=== PATIENT | male | born 1955 | race Caucasian/White ===

== ENCOUNTER 2023-08-22 14:16 | Emergency (ER) | payer MEDICARE, OTHER, SELFPAY ==
[2023-08-22 14:20] VITALS: BP 153/74; PULSE 100; RESP 18; TEMP 36.3; O2SAT 98; BMI 24.3
[2023-08-22 14:47] LABS: Add Manual Diff / Slide Review NO; Basophils Absolute Auto 100 /uL (0-100); Basophils Percent Auto 0.6 % (0-2); Eosinophils Absolute Auto 100 /uL (0-450); Eosinophils Percent Auto 1.2 % (2-4); Hemoglobin 14.1 g/dL (13.5-17.5); Lymphocytes Absolute Auto 1900 /uL (1100-4500); Lymphocytes Percent Auto 17.5 % (25-40); Mean Corpuscular HGB Conc 33.6 % (30-36); Mean Corpuscular Hemoglobin 30.6 PG (26-34); Monocytes Absolute Auto 900 /uL (0-900); Neutrophils Absolute Auto 8000 /uL (1500-7000); Neutrophils Percent Auto 72.7 % (50-75); Platelet Count 389 X10^3/uL (150-400); Red Blood Cell Count 4.62 X10^6/uL (4.5-5.9); Red Cell Distribution Width 16.6 % (11.6-14.8)
[2023-08-22 14:53] LABS: INR 0.9 (0.9-1.3); Prothrombin Time 10.7 SECONDS (9.4-12.5)
[2023-08-22 14:55] LABS: PTT Partial Thromboplastin Tim 36 SECONDS (25.1-36.5)
[2023-08-22 15:01] LABS: Alanine Aminotransferase 24 IU/L (<50); Albumin 4.7 g/dL (3.5-5.0); Albumin Globulin Ratio 1.6 (1.0-2.8); Alkaline Phosphatase 69 U/L (38-126); Aspartate Aminotransferase 28 IU/L (17-59); BUN Creatinine Ratio 22.2 (6-22); Bilirubin Total 0.5 mg/dL (0.2-1.3); Blood Urea Nitrogen 22 mg/dL (9-20); Calcium 9.5 mg/dL (8.4-10.2); Carbon Dioxide 24 mmol/L (22-32); Chloride 101 mmol/L (98-107); Estimated Glomerular Filt Rate > 60 mL/min (>60); Globulin 2.9 g/dL (1.7-4.1); Glucose 246 mg/dL (80-110); HEMOLYSIS < 15 (0-50); Potassium 4.8 mmol/L (3.4-5.1); Sodium 133 mmol/L (137-145); Total Protein 7.6 g/dL (6.3-8.2)
--- NOTE | 2023-08-22 15:20 | DI.CT.S_ITS ---
PROCEDURE: CT ANGIO CHEST PE PROTOCOL INDICATIONS: r/o PE, states coughing up blood TECHNIQUE: After the administration of intravenous contrast, 2 mm thick sections acquired from the pulmonary apices to the posterior costophrenic angles. 3-dimensional maximum intensity projection (MIP) coronal and sagittal reformats were then acquired through the thorax. For radiation dose reduction, the following was used: automated exposure control, adjustment of mA and/or kV according to patient size. COMPARISON: [facility], CT, CT CHEST WITHOUT CONTRAST, 12/14/2021, 7:50. [facility], CT, CT CHEST WITHOUT CONTRAST, 07/31/2023, 16:13. FINDINGS: Image quality: Diagnostic. Pulmonary arteries: Pulmonary arteries are normal in size, and demonstrate no intraluminal filling defects to suggest central pulmonary embolism. Lower Neck: No enlarged lymph nodes. Thyroid: No thyroid nodules which require sonographic follow up, per consensus guidelines. Axillae: No enlarged lymph nodes. Chest Wall: Unremarkable. Bones: Unremarkable. Lungs and Pleura: No pneumothorax or pleural effusions. Stable pleural based mass, left lingula, unchanged dating back to 12/14/2021, with associated pleural thickening. It measures approximately 2.5 x 1.4 cm. Heart: Heart size is normal. No pericardial effusion. Severe coronary artery calcifications. Thoracic Vessels: No aortic aneurysm. Mediastinum and Jamee: No enlarged lymph nodes. Esophagus: No wall thickening. Moderate hiatal hernia. Upper Abdomen: Visualized upper abdomen solid organs and bowel loops appear normal. IMPRESSION: 1. No acute pulmonary emboli. 2. Severe coronary artery calcifications. 3. Stable pleural based mass, lingula of left lung, with associated pleural thickening. This is stable dating back to November,. 4. Moderate hiatal hernia. 5. No acute pulmonary process. Dictated by: David Keen M.D. on 08/22/2023 at 15:58 Approved by: David Keen M.D. on 08/22/2023 at 16:05
--- NOTE | 2023-08-22 15:49 | ED.URI ---
HPI - URI/Sore Throat General Chief Complaint: Upper Respiratory Symptoms Stated Complaint: coughing blood Time Seen by Provider: 08/22/23 15:10 Source: patient Mode of arrival: Ambulatory History of Present Illness HPI Narrative: Patient here for 1 episode of hemoptysis today. No prior history of blood clots in legs or lungs. Patient just seen by pulmonary services August 16, 2023, [address]. Salazar, regarding following up a CT of the chest 2.5 cm peripheral lingular nodule associated with left pleural-based scar. Patient has history of pneumothorax rib fracture and VATS years ago. Patient is not on any blood thinners. Patient has stopped smoking 5 days ago. No fever chills. According to Pulmonary office visit 6 days ago no further workup was needed. Last night he did have some right lateral rib discomfort. Pain with movement and coughing. He had 1 episode of hemoptysis. He brought a sample in. Is dark brownish in color. No prior history of blood clots in legs or lungs. Patient is not on any blood thinners. Patient is in no distress. Related Data Home Medications Medication Instructions Recorded Confirmed insulin aspart U-100 100 unit/mL 1 unit SUBCUT TID 08/16/23 08/16/23 (3 mL) subcutaneous pen (Novolog FlexPen U-100 Insulin aspart) insulin glargine 100 unit/mL (3 22 unit SUBCUT DAILY 08/16/23 08/16/23 mL) subcutaneous pen (Lantus Solostar U-100 Insulin) levothyroxine 75 mcg tablet 75 mcg PO DAILY 08/16/23 08/16/23 (Synthroid) lisinopril 10 mg tablet 10 mg PO DAILY 08/16/23 08/16/23 omeprazole magnesium 20 mg 20 mg PO DAILY 08/16/23 08/16/23 capsule,delayed release (Acid Wind Tunnel Engineer (omeprazole)) sertraline 50 mg tablet 50 mg PO DAILY 08/16/23 08/16/23 Allergies Allergy/AdvReac Type Severity Reaction Status Date / Time No Known Drug Allergies Allergy Verified 08/29/23 08:23 Review of Systems Review of Systems Narrative: GENERAL: negative chills, fatigue, malaise, fever, sweats. HEENT: negative sinus pain, ear pain, sore throat RESPIRATORY: negative dyspnea, positive hemoptysis CARDIOVASCULAR: negative chest pain, palpitations GASTROINTESTINAL: negative nausea, vomiting, abdominal pain : negative dysuria, frequency, hematuria MUSCULOSKELETAL: negative muscle or bony pain SKIN: negative rash, skin lesions NEUROLOGIC: negative weakness, numbness ROS Unobtainable: All systems reviewed & are unremarkable except as noted in HPI and below Patient History Social History Smoking Status: Current every day smoker (Cigar) Smoking Status: Current some day smoker Substance Use Type: marijuana Exam Narrative Exam Narrative: GENERAL: in no distress, not toxic not dyspneic HEAD: Normocephalic. EYES: Pupils equal round ENT: Mucous membranes moist. NECK: Trachea midline. CARDIOVASCULAR: Regular rate and rhythm RESPIRATORY: Clear to auscultation. Breath sounds equal bilaterally. No wheezes, rales, or rhonchi. Speaking full sentences. Mild tenderness to the right mid lateral ribs. No crepitus no flail. GASTROINTESTINAL: Abdomen soft, non-tender BACK: No flank tenderness. NEURO: AOx4. Clear speech. SKIN: Warm and dry PSYCH: Not anxious, is cooperative Initial Vital Signs Initial Vital Signs: Vital Signs Temperature 97.3 F L 08/22/23 14:20 Pulse Rate 100 H 08/22/23 14:20 Respiratory Rate 18 08/22/23 14:20 Blood Pressure 153/74 H 08/22/23 14:20 Pulse Oximetry 98 08/22/23 14:20 Oxygen Delivery Method Room Air 08/22/23 14:20 Course Orders Ordered: Discontinued Medications Sodium Chloride (Normal Saline 0.9%) 500 mls @ 1,000 mls/hr IV BOLUS ONE Stop: 08/22/23 14:57 Last Infusion: 08/22/23 16:51 Dose: Infused Documented By: Admin: 08/22/23 16:00 Dose: 1,000 mls/hr Documented By: MPO Vital Signs Vital signs: Vital Signs - 8 hr 08/22/23 14:20 Temperature 97.3 F L Pulse Rate 100 H Respiratory Rate 18 Blood Pressure 153/74 H Pulse Oximetry 98 Oxygen Delivery Method Room Air MDM - URI/Sore Throat Lab Data 08/22/23 14:39 08/22/23 14:39 Labs: Lab Results 08/22/23 08/22/23 Range/Units 14:39 17:15 WBC 11.0 (4.5-11.0) X10^3/uL RBC 4.62 (4.5-5.9) X10^6/uL Hgb 14.1 (13.5-17.5) g/dL Hct 42.0 (41-53) % MCV 91.0 (80-100) fL MCH 30.6 (26-34) PG MCHC 33.6 (30-36) % RDW 16.6 H (11.6-14.8) % Plt Count 389 (150-400) X10^3/uL Neut % (Auto) 72.7 (50-75) % Lymph % (Auto) 17.5 L (25-40) % Scott % (Auto) 8.0 (3-14) % Eos % (Auto) 1.2 L (2-4) % Baso % (Auto) 0.6 (0-2) % Neut # (Auto) 8000 H (0159-6354) /uL Lymph # (Auto) 1900 (3459-9168) /uL Scott # (Auto) 900 (0-900) /uL Eos # (Auto) 100 (0-450) /uL Baso # (Auto) 100 (0-100) /uL PT 10.7 (9.4-12.5) SECONDS INR 0.9 (0.9-1.3) APTT 36 (25.1-36.5) SECONDS Sodium 133 L (137-145) mmol/L Potassium 4.8 (3.4-5.1) mmol/L Chloride 101 (98-107) mmol/L Carbon Dioxide 24 (22-32) mmol/L BUN 22 H (9-20) mg/dL Creatinine 0.99 (0.66-1.25) mg/dL Estimated GFR > 60 (>60) mL/min BUN/Creatinine Ratio 22.2 H (6-22) Glucose 246 H (80-110) mg/dL Calcium 9.5 (8.4-10.2) mg/dL Total Bilirubin 0.5 (0.2-1.3) mg/dL AST 28 (17-59) IU/L ALT 24 (<50) IU/L Alkaline Phosphatase 69 (38-126) U/L Total Protein 7.6 (6.3-8.2) g/dL Albumin 4.7 (3.5-5.0) g/dL Globulin 2.9 (1.7-4.1) g/dL Albumin/Globulin Ratio 1.6 (1.0-2.8) Chlamy pneumoniae PCR Not detected (Not Detect) Adenovirus (PCR) Not detected (Not Detect) B.parapertussis DNA PCR Not detected (Not Detecte) Coronavirus OC43 (PCR) Not detected (Not Detect) Coronavirus HKU1 (PCR) Not detected (Not Detect) Coronavirus 229E (PCR) Not detected (Not Detect) SARS-CoV-2 (PCR) Not detected (Not Detecte) Coronavirus NL63 (PCR) Not detected (Not Detect) Human Metapneumovir PCR Not detected (Not Detect) Influenza Type A (PCR) Not detected (Not Detect) Influenza Type B (PCR) Not detected (Not Detect) M. pneumoniae (PCR) Not detected (Not Detect) Parainfluenza 1 (PCR) Not detected (Not Detect) Parainfluenza 2 (PCR) Not detected (Not Detect) Parainfluenza 3 (PCR) Not detected (Not Detect) Parainfluenza 4 (PCR) Not detected (Not Detect) RSV (PCR) Not detected (Not Detect) Entero/Rhino (PCR) Not detected (Not Detect) Imaging Data CT scan - chest: Radiologist's Impression: [place] [address] CT Scan Report Signed Patient: Reyna Moore MR#: [id number] : 1955 Acct:[id number] Age/Sex: 68 / M Date of Service: 08/22/23 Loc: ED Accession Number: [id number] Procedure: CT angio chest PE protocol Ordering Provider: Anshu Milton MD PROCEDURE: CT ANGIO CHEST PE PROTOCOL INDICATIONS: r/o PE, states coughing up blood TECHNIQUE: After the administration of intravenous contrast, 2 mm thick sections acquired from the pulmonary apices to the posterior costophrenic angles. 3-dimensional maximum intensity projection (MIP) coronal and sagittal reformats were then acquired through the thorax. For radiation dose reduction, the following was used: automated exposure control, adjustment of mA and/or kV according to patient size. COMPARISON: [facility], CT, CT CHEST WITHOUT CONTRAST, 12/14/2021, 7:50. [facility], CT, CT CHEST WITHOUT CONTRAST, 07/31/2023, 16:13. FINDINGS: Image quality: Diagnostic. Pulmonary arteries: Pulmonary arteries are normal in size, and demonstrate no intraluminal filling defects to suggest central pulmonary embolism. Lower Neck: No enlarged lymph nodes. Thyroid: No thyroid nodules which require sonographic follow up, per consensus guidelines. Axillae: No enlarged lymph nodes. Chest Wall: Unremarkable. Bones: Unremarkable. Lungs and Pleura: No pneumothorax or pleural effusions. Stable pleural based mass, left lingula, unchanged dating back to 12/14/2021, with associated pleural thickening. It measures approximately 2.5 x 1.4 cm. Heart: Heart size is normal. No pericardial effusion. Severe coronary artery calcifications. Thoracic Vessels: No aortic aneurysm. Mediastinum and Jamee: No enlarged lymph nodes. Esophagus: No wall thickening. Moderate hiatal hernia. Upper Abdomen: Visualized upper abdomen solid organs and bowel loops appear normal. IMPRESSION: 1. No acute pulmonary emboli. 2. Severe coronary artery calcifications. 3. Stable pleural based mass, lingula of left lung, with associated pleural thickening. This is stable dating back to November,. 4. Moderate hiatal hernia. 5. No acute pulmonary process. Dictated by: David Keen M.D. on 08/22/2023 at 15:58 Approved by: David Keen M.D. on 08/22/2023 at 16:05 MDM Narrative Medical decision making narrative: Patient here for 1 episode of hemoptysis today. No prior history of blood clots in legs or lungs. Patient just seen by pulmonary services August 16, 2023, 6 days ago[address] Seen by Dr. Salazar, regarding following up a CT of the chest 2.5 cm peripheral lingular nodule associated with left pleural-based scar. Patient has history of pneumothorax rib fracture and VATS years ago. Patient is not on any blood thinners. Patient has stopped smoking 5 days ago. No fever chills. According to Pulmonary office visit 6 days ago no further workup was needed. Last night he did have some right lateral rib discomfort. Pain with movement and coughing. He had 1 episode of hemoptysis. He brought a sample in. Is dark brownish in color. No prior history of blood clots in legs or lungs. Patient is not on any blood thinners. Patient is in no distress. After history and exam CBC CMP PT INR CT chest PE protocol normal saline MDM Medical records reviewed: Office visit note with Pulmonary Services 6 days ago Differential considered: Includes but not limited to pulmonary embolism pneumothorax pneumonia neoplasm Lab Test results independently reviewed as above. Pertinent findings: WBC 11.0 hemoglobin 14.1 INR 0.9 AST 28 ALT 24 Imaging studies independently reviewed: CT chest PE protocol no PE. Consultations: None indicated at this time Treatments: Normal saline Re-evaluations: 5:08 p.m. Reviewed results with patient. They are reassuring at this time. Nonspecific for hemoptysis but he has stopped smoking and this may be residual material from the lungs from coughing/bronchitis, no pneumonia seen. No prescriptions are indicated. Can follow up with pulmonary services or his family doctor. Not toxic at discharge. He desires discharge home. Reviewed with patient coronary artery findings. Although no chest pain he will need to follow up with family doctor for echocardiogram and outpatient stress test. Return precautions reviewed. He desires discharge home Discussion: Appropriate for discharge home. Exam is reassuring as well as laboratory studies and imaging studies. Patient is a smoker. This could be residual lung debris from him stopping smoking recently. Five days ago. Could be/likely bronchitis. Return precautions reviewed. No prescriptions are indicated. Nontoxic at discharge. He desires discharge home Diagnosis: Hemoptysis Discharge Plan Departure Patient Disposition: Home Clinical Impression: Hemoptysis, unspecified Instructions: DI for Hemoptysis Activity Restrictions/Additional Instructions: Her laboratory studies and CT scan imaging today are reassuring of your lungs. No blood clot or infection seen. Please do follow up with your pulmonary provider within a week for re-evaluation. Please see your family doctor regarding the finding of the calcium round your heart arteries for outpatient echocardiogram and possible stress test. Even though you are not having chest pain. Return if worse if any questions or concerns Prescriptions: No Action lisinopril 10 mg tablet 10 mg PO DAILY sertraline 50 mg tablet 50 mg PO DAILY levothyroxine [Synthroid] 75 mcg tablet 75 mcg PO DAILY omeprazole magnesium [Acid Wind Tunnel Engineer (omeprazole)] 20 mg capsule,delayed release(DR/EC) 20 mg PO DAILY insulin glargine [Lantus Solostar U-100 Insulin] 100 unit/mL (3 mL) insulin pen 22 unit SUBCUT DAILY insulin aspart U-100 [Novolog FlexPen U-100 Insulin] 100 unit/mL (3 mL) insulin pen 1 unit SUBCUT TID Rx Instructions: Pt on a sliding scale Referrals: Isiah Reed MD [Primary Care Provider] - Stand Alone Forms: Patient Portal/API
[2023-08-22] MEDS: SODIUM CHLORIDE 0.9% 500 ML 1000 ML IV (16:00)
[2023-08-22 18:11] LABS: Adenovirus Not Detected (Not Detect); B. parapertussis Not Detected (Not Detecte); Bordetella pertussis Not Detected (Not Detect); Chlamydophila pneumoniae Not Detected (Not Detect); Coronavirus 229E Not Detected (Not Detect); Coronavirus HKU1 Not Detected (Not Detect); Coronavirus NL 63 Not Detected (Not Detect); Coronavirus OC43 Not Detected (Not Detect); Human Metapneumovirus Not Detected (Not Detect); Human Rhinovirus/Enterovirus Not Detected (Not Detect); Influenza A Not Detected (Not Detect); Influenza B Not Detected (Not Detect); Mycoplasma pneumoniae Not Detected (Not Detect); Parainfluenza Virus 1 Not Detected (Not Detect); Parainfluenza Virus 2 Not Detected (Not Detect); Parainfluenza Virus 3 Not Detected (Not Detect); Parainfluenza Virus 4 Not Detected (Not Detect); Respiratory Syncytial Virus Not Detected (Not Detect); SARS- CoV-2 Not Detected (Not Detecte)
== END 2023-08-22 17:12 | disposition home or self-care (01) ==
PROVIDERS: Emergency Provider Emergency Medicine; PCP Internal Medicine
DX: R04.2 Hemoptysis (principal); R07.81 Pleurodynia; Z79.899 Other long term (current) drug therapy
CPT/HCPCS: 36415; 71275; 80053; 85025; 85610; 85730; 87633; 96360; 99284; Q9967